=== PATIENT | male | born 1960 | race Caucasian/White ===

== ENCOUNTER → 2023-02-05 | Emergency (ER) | payer OTHER ==
[~2023-02-05] MED LIST: KETOROLAC 30 MG/ML INJ ONE; MORPHINE 4 MG/ML SYR ONE; NA CHLORIDE 0.9% 1,000 ML ONE; ONDANSETRON 4 MG/2 ML VIAL ONE
[2023-02-05 12:57] LABS: Absolute Lymphocytes (CBC) 2.3 K/uL (0.7-4.9); Hematocrit 47.1 % (39.6-49.0); Lymphocytes % 31.2 % (15.3-44.8); MCV 90.5 fL (80-100); MPV 8.9 fL (7.6-11.3); Platelets 223 thou/uL (152-406)
[2023-02-05 13:14] LABS: Bilirubin Total 1.1 mg/dL (0.2-1.0); Potassium 3.7 mEq/L (3.5-5.1); Protein, Total 7.1 g/dL (6.4-8.2)
--- NOTE | 2023-02-05 13:17 | RAD REPORT ---
EXAM DESCRIPTION: CT - Abdomen Pelvis Wo Contrast - 02/05/2023 12:56 pm CLINICAL HISTORY: Abdominal pain COMPARISON: None TECHNIQUE: Computed axial tomography of the abdomen and pelvis was obtained. IV and oral contrast we re not requested. All CT scans are performed using dose optimization technique as appropriate and may include automated exposure control or mA/KV adjustment according to patient size. FINDINGS: The evaluation of solid organs, vessels and bowel is limited secondary to the lack of con trast administration. Mild right hydronephrosis. Right ureter dilated. 3 millimeter calculus right UVJ. 2.5 centimeter low-density mass left kidney. Tiny hepatic cyst Adrenals, pancreas and spleen grossly normal. Normal appendix. No evidence of diverticulitis. Postsurgical changes involve the pelvis Small umbilical hernia IMPRESSION: 3 millimeter calculus right UVJ resulting in mild right hydronephrosis 2.5 centimeter low-density left renal mass most likely a cyst. Nonemergent renal ultrasound recommend ed for confirmation
--- NOTE | 2023-02-05 13:46 | ER ---
Nurse's Notes [facility] Name: Kalen Galdamez Age: 62 yrs Sex: Male : 1960 Arrival Date: 02/05/2023 Time: 12:12 Bed 16 Private MD: Diagnosis: Hydronephrosis with renal and ureteral calculous obstruction Presentation: 02/05 12:22 Chief complaint: Patient states: R GROIN PAIN RADIATING TO RLQ. Coronavirus screen: At bp this time, the client does not indicate any symptoms associated with coronavirus-19. Ebola Screen: No symptoms or risks identified at this time. Initial Sepsis Screen: Does the patient meet any 2 criteria? No. Patient's initial sepsis screen is negative. Does the patient have a suspected source of infection? No. Patient's initial sepsis screen is negative. Risk Assessment: Do you want to hurt yourself or someone else? Patient reports no desire to harm self or others. Onset of symptoms was February 05, 2023 at 11:30. 12:22 Method Of Arrival: Wheelchair bp 12:22 Acuity: MIRIAM 3 bp Triage Assessment: 12:23 General: Appears distressed, uncomfortable, Behavior is cooperative, appropriate for bp age, anxious. Pain: Complains of pain in right lower quadrant. GI: Reports lower abdominal pain. : Reports urinary frequency. Historical: - Allergies: 12:23 Codeine; bp - Home Meds: 12:23 Flomax 0.4 mg Oral capsule [Active]; bp - PMHx: 12:23 Hypertensive disorder; bp - Immunization history:: Adult Immunizations up to date. - Social history:: Smoking status: Patient denies any tobacco usage or history of. Screenin:58 [facility] ED Fall Risk Assessment (Adult) History of falling in the last 3 months, rs5 including since admission No falls in past 3 months (0 pts). Abuse screen: Denies threats or abuse. Denies injuries from another. Nutritional screening: No deficits noted. Tuberculosis screening: No symptoms or risk factors identified. Assessment: 12:35 General: Appears in no apparent distress. comfortable, Behavior is calm, cooperative. rs5 Pain: Complains of pain in abdomen Pain does not radiate. Pain currently is 7 out of 10 on a pain scale. Quality of pain is described as aching, Pain began 3 hours ago. Is continuous. 12:35 Neuro: Level of Consciousness is awake, alert, obeys commands, Oriented to person, rs5 place, time, situation. Cardiovascular: Heart tones S1 S2 present Rhythm is regular. Respiratory: Airway is patent Respiratory effort is even, unlabored, Respiratory pattern is regular, symmetrical, Breath sounds are clear bilaterally. GI: Abdomen is round non-distended, Bowel sounds present X 4 quads. Abd is soft and non tender X 4 quads. : No signs and/or symptoms were reported regarding the genitourinary system. EENT: No signs and/or symptoms were reported regarding the EENT system. Derm: Skin is intact, Skin is dry, Skin is normal, Skin temperature is warm. Musculoskeletal: Range of motion: intact in all extremities. 13:20 Reassessment: Patient and/or family updated on plan of care and expected duration. Pain rs5 level reassessed. Patient is alert, oriented x 3, equal unlabored respirations, skin warm/dry/pink. Patient denies pain at this time. Patient states feeling better. Patient states symptoms have improved. Vital Signs: 12:22 BP 156 / 90; Pulse 65; Resp 16; Temp 98; Pulse Ox 100% ; Weight 87.09 kg; Height 6 ft. bp 0 in. ; 13:30 BP 140 / 88; Pulse 67; Resp 17; Pulse Ox 99% on R/A; rs5 12:22 Body Mass Index 26.04 (87.09 kg, 182.88 cm) bp ED Course: 12:14 Patient arrived in ED. im 12:15 Samuel Lr MD is Attending Physician. ec2 12:23 Triage completed. bp 12:25 Arm band placed on. bp 12:41 Mitchel Weems, RN is Primary Nurse. rs5 12:51 Initial lab(s) drawn, by me, sent to lab. aw1 12:53 CBC with Diff Sent. aw1 12:53 CMP Sent. aw1 12:53 Lipase Sent. aw1 12:57 CT Abd/Pelvis - Without Contrast In Process Unspecified. EDMS 13:46 Jace Todd MD is Referral Physician. ec2 13:58 Patient has correct armband on for positive identification. Placed in gown. Bed in low rs5 position. Call light in reach. Side rails up X2. compliance monitor on. Pulse ox on. NIBP on. Door closed. Noise minimized. Warm blanket given. 13:58 No provider procedures requiring assistance completed. IV discontinued, intact, rs5 bleeding controlled, No redness/swelling at site. Administered Medications: 12:35 Drug: TORadol - Ketorolac IVP 15 mg IVP once Route: IVP; Site: left antecubital; rs5 13:02 Follow up: Response: No adverse reaction rs5 12:35 Drug: Ondansetron IVP 4 mg IVP once; over 2 minutes Route: IVP; Site: left antecubital; rs5 19:22 Follow up: Response: No adverse reaction rs5 12:35 Drug: morphine IVP or IV 4 mg IVP once over 4 mins Route: IVP; Infused Over: 4 mins; rs5 Site: left antecubital; 13:05 Follow up: Response: No adverse reaction; Pain is decreased rs5 12:40 Drug: NS 0.9% IV 1000 ml IV at 1 bolus Per protocol; 1000 mL bolus Route: IV; Rate: 1 rs5 bolus; Site: left antecubital; 13:00 Follow up: Response: No adverse reaction rs5 Medication: 13:58 VIS not applicable for this client. rs5 Outcome: 13:46 Discharge ordered by . ec2 13:58 Discharged to home ambulatory, with family, rs5 13:58 Condition: stable 13:58 Discharge instructions given to patient, family, Instructed on discharge instructions, follow up and referral plans. medication usage, Demonstrated understanding of instructions, follow-up care, medications, Prescriptions given X 2, 13:59 Patient left the ED. rs5 Signatures: Dispatcher [employer] Gibran Layton RN RN Mitchel Weems RN RN rs5 Sheryl Parra Alyssa aw1 Samuel Lr MD MD ec2 Corrections: (The following items were deleted from the chart) 19:20 12:35 Pain: Complains of pain in abdomen rs5 rs5
--- NOTE | 2023-02-05 13:46 | EDPHYS ---
Physician Documentation [facility] Name: Kalen Galdamez Age: 62 yrs Sex: Male : 1960 Arrival Date: 02/05/2023 Time: 12:12 Bed 16 Private MD: ED Physician Samuel Lr HPI: 02/05 13:12 This 62 yrs old Male presents to ER via Wheelchair with complaints of ec2 Abdominal Pain. 13:12 Patient arrives today for lower abdominal pain with right flank pain. States has been ec2 having intermittent pain for the past 5 days, no specific alleviating or exacerbating factors, no nausea or vomiting. Patient reports no change in stools. Denies any concerns. Denies any hematuria or dysuria.. Historical: - Allergies: 12:23 Codeine; bp - Home Meds: 12:23 Flomax 0.4 mg Oral capsule [Active]; bp - PMHx: 12:23 Hypertensive disorder; bp - Immunization history:: Adult Immunizations up to date. - Social history:: Smoking status: Patient denies any tobacco usage or history of. ROS: 13:12 Constitutional: as per hpi ec2 Exam: 13:12 Constitutional: GEN: NAD Head: atraumatic Eyes: EOMI Ears: External ears are ec2 normal. CV: regular rate LUNGS: no respiratory distress ABD: non-distended, soft, nontender, no guarding, not rigid, right flank TTP SKIN: no evidence of rashes MSK: no evidence of trauma NEURO: moves all extremities equally Vital Signs: 12:22 BP 156 / 90; Pulse 65; Resp 16; Temp 98; Pulse Ox 100% ; Weight 87.09 kg; Height 6 ft. bp 0 in. ; 13:30 BP 140 / 88; Pulse 67; Resp 17; Pulse Ox 99% on R/A; rs5 12:22 Body Mass Index 26.04 (87.09 kg, 182.88 cm) bp MDM: 12:36 Patient medically screened. ec2 13:12 Data reviewed: vital signs. ED course: Patient arrives today for abdominal pain and ec2 flank pain. Examination remarkable for abdominal findings as noted above. Will obtain lab work, urine studies, CT imaging, treat the patient pain with IV morphine and reassess patient. Currently considering UTI, pyelonephritis, ureteral stone.. 13:39 ED course: Metabolic profile is reassuring. CBC is reassuring. Lipase within normal ec2 ranges. CT scan shows 3 mm right UVJ calculus. Will discharge home with urology follow-up and have him start on pain medications, patient already on Flomax.. 12 12:35 Order name: CBC with Diff; Complete Time: 13:39 ec2 02/05 12:35 Order name: CMP; Complete Time: 13:39 ec2 02/05 12:35 Order name: Lipase; Complete Time: 13:39 ec2 02/05 12:35 Order name: CT Abd/Pelvis - Without Contrast; Complete Time: 13:39 ec2 02/05 12:35 Order name: IV Saline Lock; Complete Time: 13:06 ec2 02/05 12:35 Order name: Labs collected and sent; Complete Time: 12:53 ec2 Administered Medications: 12:35 Drug: TORadol - Ketorolac IVP 15 mg IVP once Route: IVP; Site: left antecubital; rs5 13:02 Follow up: Response: No adverse reaction rs5 12:35 Drug: Ondansetron IVP 4 mg IVP once; over 2 minutes Route: IVP; Site: left antecubital; rs5 19:22 Follow up: Response: No adverse reaction rs5 12:35 Drug: morphine IVP or IV 4 mg IVP once over 4 mins Route: IVP; Infused Over: 4 mins; rs5 Site: left antecubital; 13:05 Follow up: Response: No adverse reaction; Pain is decreased rs5 12:40 Drug: NS 0.9% IV 1000 ml IV at 1 bolus Per protocol; 1000 mL bolus Route: IV; Rate: 1 rs5 bolus; Site: left antecubital; 13:00 Follow up: Response: No adverse reaction rs5 Disposition Summary: 02/05/23 13:46 Discharge Ordered Notes: Location: Home ec2 Condition: Stable ec2 Diagnosis - Hydronephrosis with renal and ureteral calculous obstruction ec2 Followup: ec2 - With: Jace Todd MD - When: - Reason: Continuance of care Discharge Instructions: - Discharge Summary Sheet ec2 - Kidney Stones, [id number] ec2 Forms: - Medication Reconciliation Form ec2 - Thank You Letter ec2 - Antibiotic Education ec2 - Prescription Opioid Use ec2 - Patient Portal Instructions ec2 - Leadership Thank You Letter ec2 Prescriptions: - acetaminophen-codeine 300-15 mg Oral tablet - take 2 tablet ORAL route every 4 hours as needed for pain; 20 tablet; Refills: ec2 0, Product Selection Permitted - Zofran 4 mg Oral Tablet - take 1 tablet ORAL route every 12 hours As needed; 20 tablet; Refills: 0, ec2 Product Selection Permitted Signatures: Dispatcher [employer] EDGibran Solano RN RN Mitchel Weems RN RN rs5 Samuel Lr MD MD ec2 Corrections: (The following items were deleted from the chart) 13:45 13:39 ED course: Metabolic profile is reassuring. CBC is reassuring. Lipase within ec2 normal ranges. CT scan shows 3 mm right UVJ calculus. Will discharge home with urology follow-up and have him start on pain medications and Flomax.. ec2
[2023-02-05 14:05] VITALS: BP 156/90; TEMP 98; O2SAT 100
== END ==
LOC: ER 12:12
DX: N13.2 Hydronephrosis with renal and ureteral calculous obstruction (principal); I10 Essential (primary) hypertension; Z88.5 Allergy status to narcotic agent
CPT/HCPCS: 85025; 36415; 83690; 80053; 74176; 96375; 96374; 99284; J2405; J7030